=== PATIENT | female | born 1985 | race Caucasian/White ===

== ENCOUNTER 2024-05-09 21:49 | Emergency (ER) | payer OTHER ==
[~2024-05-09] VITALS: Ht 157.5 cm; Wt 107.9 kg
[2024-05-09] MEDS ORDERED: ondansetron HCL 4 MG/2 ML VIAL IV ONE (22:00)
[2024-05-09] MEDS ORDERED: HYDROmorphone HCL 1 MG/ML SYR IV PRN (22:00)
[2024-05-09] MEDS ORDERED: DIPHTH,PERTUSS(ACELL),TET VAC 0.5 ML SYRINGE IM ONE (22:00)
[2024-05-09 22:09] LABS: BASOPHILS 0.4 % (0-2); EOSINOPHILS 1.2 % (0-6); HEMATOCRIT 35.4 % (35.0-50.0); HEMOGLOBIN 12.3 g/dL (12.0-18.0); MCH 30.4 (27-36); MCHC 34.7 g/dl (30-36); MCV 87.6 fl (81-99); MONOCYTES 7.8 % (0-12); NEUTROPHILS 54.6 % (39-80); PLATELET COUNT 269 K/uL (140-440); RBC 4.03 M/ul (4.3-5.7); RDW 13.4 (10.5-15.0)
[2024-05-09 22:24] LABS: ALBUMIN 3.5 g/dL (3.4-5.0); ALBUMIN/GLOBULIN RATIO 0.97 (1.1-2.4); ALCOHOL, MEDICAL <3 ng/dL (<3); ALKALINE PHOSPHATASE 97 U/L (46-116); ALT (SGPT) 19 U/L (14-59); ANION GAP 13.2 (7-21); AST (SGOT) 15 U/L (15-37); BILIRUBIN, TOTAL 0.2 ng/dL (0.2-1.0); BUN/CREATININE RATIO 13.13 (6.0-28.6); CALCIUM 8.8 mg/dL (8.5-10.1); CARBON DIOXIDE 26 mmol/L (21-32); CHLORIDE 103 mmol/L (98-107); CREATINE KINASE 45 U/L (26-192); CREATININE, SERUM 0.99 mg/dL (0.55-1.02); GLOMERULAR FILTRATION RATE,EST 75 mL/min (>60); POTASSIUM 4.2 mmol/L (3.5-5.1); PROTEIN, TOTAL 7.1 g/dL (6.4-8.2); UREA NITROGEN 13 mg/dL (7-18)
[2024-05-09 22:48] LABS: ABO A; ANTIBODY SCREEN NEGATIVE; RH NEGATIVE
[2024-05-09 23:11] LABS: BILIRUBIN, URINE NEGATIVE (negative); BLOOD/HGB, URINE LARGE (Negative); KETONE, URINE NEGATIVE (Negative); LEUK ESTERASE, URINE NEGATIVE (negative); NITRITE, URINE NEGATIVE (negative); PH, URINE 6.5 (5-7)
[2024-05-09 23:25] LABS: RED BLOOD CELLS, URINE 21-40 /hpf (0-5)
[2024-05-09 23:26] LABS: AMPHETAMINES, URINE NEGATIVE (NEGATIVE); BACTERIA, URINE NONE SEEN /hpf (negative); BARBITURATES, URINE NEGATIVE (NEGATIVE); BENZODIAZEPINE, URINE NEGATIVE (NEGATIVE); BUPRENORPHINE, URINE NEGATIVE (NEGATIVE); CANNABINOID, URINE NEGATIVE (NEGATIVE); CASTS, URINE NEGATIVE \\lpf; COCAINE, URINE NEGATIVE (NEGATIVE); COLLECTION TYPE, URINE CLEAN CATCH; CRYSTALS, URINE NONE SEEN (0-1+); ECSTASY, URINE NEGATIVE (NEGATIVE); EPITHELIAL CELLS, URINE SQUAMOUS 1+ /lpf (0-1+); FENTANYL, URINE POSITIVE (NEGATIVE); METHADONE, URINE NEGATIVE (NEGATIVE); OPIATES, URINE NEGATIVE (NEGATIVE); OXYCODONE, URINE NEGATIVE (NEGATIVE); PHENCYCLIDINE, URINE NEGATIVE (NEGATIVE); REFLEX CULTURE, URINE No (No)
[2024-05-10 00:50] VITALS: BP 123/76
== END 2024-05-10 00:50 | disposition home or self-care (01) ==
LOC: ED 21:49
PROVIDERS: Internal Medicine
DX: S80.12XA Contusion of left lower leg, initial encounter (principal); S00.01XA Abrasion of scalp, initial encounter; S40.812A Abrasion of left upper arm, initial encounter; M54.6 Pain in thoracic spine; M54.50 Low back pain, unspecified
CPT/HCPCS: 36415; 70450; 71260; 72125; 73590; 74177; 80053; 80307; 81001; 82553; 84703; 85025; 86850; 86900; 86901; 90471; 90715; 99284-25; G0480; J1170; J2405; Q9967